=== PATIENT | male | born 1955 | race Caucasian/White ===

== ENCOUNTER 2024-08-11 16:17 | Emergency (ER) | payer MEDICARE ==
[~2024-08-11] VITALS: Ht 175.3 cm; Wt 59.0 kg
[2024-08-11 18:30] VITALS: BP 111/69; PULSE 111; RESP 18; TEMP 98.2; O2SAT 98
== END 2024-08-11 18:32 | disposition home or self-care (01) ==
LOC: EDH 16:17
DX: R53.1 Weakness (principal)